=== PATIENT | male | born 1965 | race Caucasian/White ===

== ENCOUNTER → 2021-12-01 | Day surgery (SDC) | payer SELFPAY, OTHER ==
[2021-11-30 10:29] LABS: BASOPHILS % (AUTO) 0.6 % (0-1); EOSINOPHILS # (AUTO) 0.3 X10'3 (0-0.9); EOSINOPHILS % (AUTO) 7.2 % (0-6); LYMPHOCYTES # (AUTO) 1.4 X10'3 (1.1-4.8); LYMPHOCYTES % (AUTO) 31.6 % (21-51); MEAN CORPUSCULAR HEMOGLOBIN 29.1 PG (27.0-31.0); MEAN CORPUSCULAR HGB CONC 33.4 g/dL (33.0-36.5); MEAN PLATELET VOLUME 10.2 FL (7.4-10.4); MONOCYTES # (AUTO) 0.5 X10'3 (0-0.9); NEUTROPHILS # (AUTO) 2.3 X10'3 (1.8-7.7); NEUTROPHILS % (AUTO) 49.6 % (42-75); PRE OP HEMATOCRIT 44.8 % (42.0-52.0); PRE OP PLATELET COUNT 129 X10'3 (140-440); RED BLOOD COUNT 5.15 X10'6 (4.70-6.10); RED CELL DISTRIBUTION WIDTH 13.4 % (11.5-14.5)
[2021-11-30 10:36] LABS: ALBUMIN 3.5 G/DL (3.4-5.0); ALBUMIN/GLOBULIN RATIO 1.2 (1.1-1.5); ALKALINE PHOSPHATASE 73 IU/L (46-116); BLOOD UREA NITROGEN 24 MG/DL (7-18); BUN/CREATININE RATIO 25.3 (5.4-32.0); CALCIUM 8.3 MG/DL (8.5-10.1); CHLORIDE 106 MMOL/L (99-107); CREATININE 0.95 MG/DL (0.60-1.10); PRE OP ALT 26 U/L (30-65); PRE OP ANION GAP 7 (8-16); PRE OP AST 16 U/L (10-37); PRE OP BILIRUB, TOTAL 0.4 MG/DL (0.0-1.0); PRE OP GLUCOSE 95 MG/DL (70-104); PRE OP POTASSIUM 4.2 MMOL/L (3.4-5.1); PRE OP SODIUM 141 MMOL/L (135-145); TOTAL CARBON DIOXIDE 27.6 MMOL/L (24-32); TOTAL PROTEIN 6.5 G/DL (6.4-8.2); eGFR 83 ML/MIN
[~2021-12-01] VITALS: Ht 193 cm; Wt 111.0 kg
[~2021-12-01] MED LIST: BUPIVAcaine 0.5% inj/PF 30 ML ONE; BUPIVAcaine 0.5% inj/PF 30 ml vial IJ ONE; BUPIVAcaine 0.5% inj/PF 60 ML ONE; DIPH25CA83 PO; FENTANYL CITRATE/PF 50 MCG/1 ML VIAL ONE; LIDOcaine 1% 30ml preserv. free vial ONE; cefazolin/dext.iso 2gm/50ml IV ONE; famotidine 20mg tablet PO ONE; lidocaine 1%/epinephrine 1:100,000 inj. 50ml multi-dose vial ONE; meperidine/PF 25mg/ml syringe IV PRN; midazolam 1 mg/ML 2ml injection ONE; morphine 10mg/ml inj. ONE; morphine 2 MG/ML inj. syringe IV PRN; morphine 4 MG/ML inj SYRINge IV PRN; ondansetron/PF 4mg/2ml inj IV PRN; proCHLORperazine 10 MG/2 ml inj IV PRN; ringers solution, lacted 1,000 ML IV SCH; triamcinolone acetonide 40mg/ml inj ONE; vancomycin/NS 1 GM in NS 250 ML IV ONE
[2021-12-01 07:05] VITALS: BP 130/68
--- NOTE | 2021-12-01 07:05 | NUR ---
PT PREPPED FOR SURGERY, IV STARTED WITHOUT DIFFICULTY. SMALL CUT LIKE WOUND NOTED ON RIGHT KNEE DR LEON MADE AWARE. BLOOD SUGAR 117 PREOPERATIVELY, RIGHT KNEE AREA SHAVED AND PREPPED BY [employer]IS DIGITAL CARTOGRAPHER. WARM BLANKET GIVEN PT REMAINS COMFORTABLE AWAITING SURGERY
[2021-12-01 10:12] VITALS: BP 111/73
--- NOTE | 2021-12-01 10:12 | NUR ---
Received from OR via [facility] , accompanied by Anesthesiologist MINI and report given by Anesthesiolgist. PATIENT WITH 20G PIV IN LEFT HAND RUNNING LR AT 100. DENIES PAIN BIAS WRAP TO RIGHT KNEE. + DP PRESENT TO RIGHT LE. VSS. ON ROOM AIR. Addendum: 12/01/21 at 1018 by Shaheed Paulino RN, RN Amended: Links added.
[2021-12-01 10:20] VITALS: BP 112/78
[2021-12-01 10:30] VITALS: BP 122/84
[2021-12-01 10:40] VITALS: BP 118/72
--- NOTE | 2021-12-01 10:42 | NUR ---
ALL DISCHARGE CRITERIA HAS BEEN MET. VSS, PAIN AT A TOLERABLE LEVEL, ABLE TO SAFELY AMBULATE AND TRANSFER SELF. IV TAKEN OUT WITHOUT ANY COMPLICATIONS. ALL DISCHARGE INSTRUCTIONS COVERED WITH PATIENT AND ALL QUESTIONS ANSWERED. PATIENT TAKEN OUT VIA WHEELCHAIR TO PERSONAL VEHICLE WHERE FAMILY/FRIEND DROVE PATIENT HOME. DRESSING CDI,VSS. Addendum: 12/01/21 at 1057 by Shaheed Paulino RN, RN Amended: Links added.
== END | disposition home or self-care (01) ==
LOC: PAS 06:58
PROVIDERS: ATTEND Orthopaedic Surgery
DX: S83.271A Complex tear of lateral meniscus, current injury, right knee, initial encounter (principal); S83.241A Other tear of medial meniscus, current injury, right knee, initial encounter; M94.261 Chondromalacia, right knee; M17.11 Unilateral primary osteoarthritis, right knee; E66.8 Other obesity; Z68.30 Body mass index [BMI] 30.0-30.9, adult; G47.30 Sleep apnea, unspecified; J45.909 Unspecified asthma, uncomplicated; Z98.890 Other specified postprocedural states; Z79.899 Other long term (current) drug therapy; Z20.822 Contact with and (suspected) exposure to COVID-19; X58.XXXA Exposure to other specified factors, initial encounter; Y92.89 Other specified places as the place of occurrence of the external cause; Y93.89 Activity, other specified; Y99.8 Other external cause status
CPT/HCPCS: 29873; 29879; 29880; 36415; 80053; 82948; 85025; 87635; 93005; C9803; J0690; J2250; J2274; J3010; J3301; J3370; J3490; S0020; Z7506; Z7508; Z7512; A4215; A4618; A6250; A6449; A7000; J7120